=== PATIENT | male | born 1945 | race Caucasian/White ===

== ENCOUNTER 2023-12-31 22:07 | Inpatient (IN) | payer MEDICARE, OTHER, SELFPAY ==
[2023-12-31 17:13] VITALS: BP 126/84
[2023-12-31 17:37] LABS: % Basophils 0.2 % (0-2); % Eosinophils 0.1 % (0-6); % Immature Granulocytes 0.8 % (0-0.5); % Lymphocytes 3.8 % (20.5-51.1); % Monocytes 6.2 % (1.7-9.3); % Neutrophils 88.9 % (42.2-75.2); Absolute Immature Granulocytes 0.1 10^3/uL (0-0.05); Absolute Lymphocytes 0.6 10^3/uL (1.2-3.4); Absolute Neutrophils 14.7 10^3/uL (1.4-6.5); Hematocrit 44.4 % (39.0-52.0); Hemoglobin 15.6 g/dL (13.0-18.0); Mean Corp Hgb Conc. 35.1 g/dL (33.0-37.0); Mean Corpuscular Hgb 33.3 pg (27.0-31.0); Mean Corpuscular Volume 94.9 fL (80.0-94.0); Mean Platelet Volume 9.4 fL (7.4-10.4); Nucleated Red Blood Cells % 0 % (-); Platelet Count 266 10^3/uL (130-400); Red Blood Cell Count 4.68 10^6/uL (4.70-6.10); Red Cell Dist. Width 14.2 % (11.5-14.5); White Blood Cell Count 16.5 10^3/uL (4.8-10.8)
[2023-12-31 17:39] LABS: Urine Albumin Trace (Neg - Trace); Urine Bilirubin Negative (Negative); Urine Character Slightly Cloudy (Clear); Urine Color Yellow; Urine Glucose 2+ (Negative); Urine Ketone Negative (Negative); Urine Leukocyte 2+ (Negative); Urine Nitrite Positive (Negative); Urine Occult Blood 2+ (Negative); Urine Specific Gravity 1.015 (<1.030); Urine Urobilinogen Negative (Neg - 1+)
[2023-12-31 17:51] LABS: Urine Bacteria Many (Negative); Urine Red Blood Cell 0-2 /HPF (0-2); Urine White Cell 16-20 /HPF (0-5)
[2023-12-31 17:52] LABS: Lactic Acid 1.2 mmol/L (0.7-2.0)
[2023-12-31 17:53] LABS: ALT (SGPT) 23 U/L (0-50); AST (SGOT) 23 U/L (17-59); Albumin 4.1 g/dl (3.5-5.0); Alkaline Phosphatase 124 U/L (38-126); Blood Urea Nitrogen 33 mg/dl (9-20); Calcium 9.4 mg/dl (8.4-10.2); Carbon Dioxide 19 mmol/L (22-30); Chloride 105 mmol/L (98-107); Glucose 214 mg/dl (70-99); Sodium 137 mmol/L (135-145); Total Bilirubin 1.1 mg/dl (0.2-1.3); eGFR 56.23
[2023-12-31 18:22] LABS: COVID-19 Antigen Negative (Negative)
--- NOTE | 2023-12-31 18:38 | ED.GENMED ---
History of Present Illness
<FLORIAN Vee - Last Filed: 12/31/23 20:34>
General
Chief Complaint: Fever
Source: patient
Exam Limitations: none
Time Seen by Provider: 12/31/23 17:58
History of Present Illness
History of Present Illness:
This is a 78 year old male that comes in with c/o fever. States that he took a trip to [place] and when he came home he had COVID. States that he was treated with Paxlovid and after this he started with a UTI due to a kidney infection. States that he
was treated with Bactrim fo 10 days. States that he again has a fever and that he is also coughing. States that his temp at home was 102.8 and he has not taken any Tylenol. States that he has had fever with chills. Denies any chest pain, SOB, abd
pain, nausea, vomiting, diarrhea, headache, dizziness, urinary burning.
Past History
<FLORIAN Vee - Last Filed: 12/31/23 20:34>
Past History
ED Past Medical History: Cancer (Skin CA, Basal cell and Melanoma, Non-Hodgkin's Lymphoma), HTN, Hypercholesterolemia, NIDDM and Other (COVID)
ED Past Surgical History: None
Social History
Tobacco: Former smoker
Alcohol: None
Personal:
Living: with family
Review of Systems
<FLORIAN Vee - Last Filed: 12/31/23 20:34>
Review of Systems
Constitutional: Reports fever and chills
EENT: Reports no symptoms
Respiratory: Reports cough; Denies trouble breathing
Cardiac: Reports no symptoms; Denies chest pain
ABD/GI: Reports no symptoms; Denies abdominal pain, nausea, vomiting or diarrhea
: Reports dysuria and frequency; Denies urgency
Musculoskeletal: Reports no symptoms
Skin: Reports no symptoms
Neurological: Reports no symptoms; Denies dizzy or headache
Psychiatric: Reports no symptoms
Phy Exam
<FLORIAN Vee - Last Filed: 12/31/23 20:34>
General Physical Exam
General Presentation: no apparent distress
General age: appears stated age
General Skin: warm and dry
General Habitus: elderly
General Mental: alert
General Hydration: appears well hydrated
ENT Exam
ENT Exam: TM's normal, pharynx normal and neck supple
Eye Exam
Eye Exam: EOMI
Cardiovascular Exam
Cardiovascular Exam: regular rate/rhythm, no edema, no murmur and normal peripheral pulses
Pulmonary Exam
Pulmonary Exam: lungs clear, no respiratory distress, no rales, chest non tender, no crackles, no rhonchi, no wheezing and other (Dry cough noted)
Gastrointestinal Exam
Gastrointestinal Exam: normal bowel sounds, non tender, soft, no organomegaly, no pulsatile mass and non distended
Musculoskeletal Exam
Musculoskeletal Exam: full ROM and no edema
Skin Exam
Skin Exam: normal color, warm/dry, no rash and no petechia
Psychiatric Exam
Psychiatric Exam: normal mood/affect
Course
<FLORIAN Vee - Last Filed: 12/31/23 20:34>
Orders/Labs/Results
Orders:
Orders
12/31/23 17:28
COVID-19 Antigen Urgent
Source: Nasal Swab
Complete Blood Count/With Diff Urgent
Comprehensive Metabolic Panel Urgent
Lactate Level [Lactic Acid] Q4H
Influenza A+B Rapid Molecular Urgent
JUDI Source: Nasal Swab
Specimen Description:
12/31/23 17:31
Urinalysis Reflex To Culture Urgent
Date Specimen was Collected: 12/31/23
Time Specimen was Collected: 17:23
Urine Microscopic Reflex Cult Urgent
Urine Culture Urgent
JUDI Source: U
Specimen Description:
Date Specimen was Collected: 12/31/23
Time Specimen was Collected: 17:23
12/31/23 18:37
Rectal Temp- Treatment ONCE
0.9% Sodium Chloride 1000 ml [Nss] 1,000 ml IV BOLUS
12/31/23 18:38
Acetaminophen [Tylenol] 1,000 mg PO NOW STA
CR Chest - 2 Views Urgent
Comment:
Reason For Exam: Cough, fever,
12/31/23 18:46
CT Abd/pel Without Iv Or Oral Urgent
Comment:
Reason For Exam: UTI, Fever, history of kidney stones
12/31/23 18:56
Lactic Acid Urgent
Blood Culture Urgent
JUDI Source: Blood/Venous
Specimen Description:
12/31/23 19:58
CefTRIAXone [Rocephin] 1,000 mg IV NOW STA
12/31/23 21:20
Blood Culture Urgent
JUDI Source: Blood/Venous
Specimen Description:
12/31/23 21:32
Admit/Transfer Patient As Directed
Co-Sign Provider:
Level of Care: Inpatient admission
Assign to:: IMU- Intermediate Care
Physician / Group: Charles
Diagnosis: Cystitis / Prostatitis, Sepsis
Reason for Hospitalization: Cystitis / Prostatitis, Sepsis
Expected length of stay greater than two midnights?: Yes
ELOS- Estimated Length of Stay in days: 3
I certify the patient meets the requirements for IP care: Yes
PRN Pain Medication Management As Directed
May give lesser potent ordered pain med per pt: Yes
preference::
Protocol:: Medication orders for pain may be administered in a
manner that supports deferring to patient preference
when the pt is:
- Requesting an ordered lesser potent pain medication.
Least to most potent pain medications are defined
as: acetaminophen < NSAID < tramadol < opioids
(morphine, oxycodone, hydromorphone).
- Requesting a lesser dose of the same medication IF
ORDERED.
- Requesting a less intrusive route of administration
if both routes are prescribed by the provider (PO <
IV).
12/31/23 21:35
Code Status As Directed
Resuscitation Status: Full Code
12/31/23 22:00
Flush (0.9% Sodium Chloride) [Flush (Nss)] See Dose Instructions IV PER PROTOCOL
12/31/23 23:33
0.9% Sodium Chloride 1000 ml [Nss] 1,000 ml IV 100 mls/hr
Acetaminophen [Tylenol] 650 mg PO Q4HPRN PRN
Dextrose 50%-Water [Dextrose 50% Syringe] 12.5 grams IV Q72BQGE PRN
Glucagon [GlucaGen] 1 mg IM PRN PRN
Montelukast Sodium [Singulair] 10 mg PO HS
Rosuvastatin Calcium [Crestor] 20 mg PO HS
12/31/23 23:33
Activity As Directed
Activity Level: Ambulate
With Assistance
Bedside Glucose Monitoring As Directed
Frequency: AC&HS
Additional Instructions:: Change to q6h if pt on TPN, tube feeding or not eating
Bladder Scan As Directed
Follow Bladder Retention/Intermittent Cath Algorithm?: Yes
PRN if no void in __ hours: 6
Frequency: Per Retention Algorithm
If Bladder Scan Result >: 400
then:: Straight cath
I/O [Intake/ Output] As Directed
Frequency: Per unit guidelines
Orthostatic Vital Signs As Directed
Orthostatic VS Frequency: BID
Straight Cath As Directed
Frequency: Per Retention Algorithm
Additional Instructions: straight cath as needed per acute urinary retention algorithm for 24 hrs
Additional Instructions: for bladder scan greater than 400 mL
Vital Signs As Directed
Frequency: Per unit guidelines
Oxygen Therapy [O2 Therapy] [RESP] Routine
Titrate/Wean O2 to maintain O2 sat greater than (%): 94
DX Deep Vein Thrombosis Video Routine
01/01/24 Breakfast
2000 calorie (17 carb) Diabetic
At Your Request: Full Participation
Basic Metabolic Panel IN AM
Complete Blood Count/No Diff IN AM
Glycohemoglobin (HgbA1c) IN AM
01/01/24 07:30
Insulin Aspart Corrective Low [Novolog Flexpen-Low Resistance] See Protocol SC AC
01/01/24 08:00
Allopurinol [Zyloprim] 100 mg PO BID
Aspirin Chewable [Low Strength Aspirin] 81 mg PO DAILY
Carvedilol [Coreg] 25 mg PO BID
Pantoprazole [Protonix] 40 mg PO DAILY
Sacubitril 49/Valsartan 51 [Entresto 49 mg/51 mg] 1 tab PO BID
Tamsulosin [Flomax] 0.4 mg PO DAILY
01/01/24 18:00
Enoxaparin Sodium [Lovenox] 40 mg SC QPM
Abnormal Lab Results
12/31/23 12/31/23
17:28 17:31
WBC 16.5 H 10^3/uL
(4.8-10.8)
RBC 4.68 L 10^6/uL
(4.70-6.10)
MCV 94.9 H fL
(80.0-94.0)
MCH 33.3 H pg
(27.0-31.0)
Abs Immat Gran (auto) 0.1 H 10^3/uL
(0-0.05)
Absolute Neuts (auto) 14.7 H 10^3/uL
(1.4-6.5)
Absolute Lymphs (auto) 0.6 L 10^3/uL
(1.2-3.4)
Absolute Monos (auto) 1.0 H 10^3/uL
(0.1-0.6)
Immature Gran % 0.8 H %
(0-0.5)
Neutrophils % 88.9 H %
(42.2-75.2)
Lymphocytes % 3.8 L %
(20.5-51.1)
Carbon Dioxide 19 L mmol/L
(22-30)
BUN 33 H mg/dl
(9-20)
Glucose 214 H mg/dl
(70-99)
Ur Occult Blood Reflex 2+ A
(Negative)
Urine Nitrite (Reflex) Positive A
(Negative)
Leukocyte Esterase Rfl 2+ A
(Negative)
Urine WBC (Reflex) 16-20 A /HPF
(0-5)
Urine Bacteria (Reflex) Many A
(Negative)
Urine Glucose 2+ A
(Negative)
12/31/23 17:28
12/31/23 17:28
Leukocytosis, carbon dioxide low. Dehydration. Hyperglycemia, Urine positive for infection. Lactic acid normal at 1.2
Vital Signs
Initial and Last Documented VS:
Initial Vital Signs
Temp Pulse Resp BP Pulse Ox
99.9 F 124 20 126/84 91
12/31/23 17:13 12/31/23 17:13 12/31/23 17:13 12/31/23 17:13 12/31/23 17:13
Last Documented Vital Signs
Temp Pulse Resp BP Pulse Ox
98.3 F 88 22 121/76 94
01/01/24 00:37 01/01/24 01:45 01/01/24 01:45 01/01/24 01:00 01/01/24 01:45
<Belkis Bell MD - Last Filed: 01/01/24 02:31>
Orders/Labs/Results
Orders:
Orders
12/31/23 17:28
COVID-19 Antigen Urgent
Source: Nasal Swab
Complete Blood Count/With Diff Urgent
Comprehensive Metabolic Panel Urgent
Lactate Level [Lactic Acid] Q4H
Influenza A+B Rapid Molecular Urgent
JUDI Source: Nasal Swab
Specimen Description:
12/31/23 17:31
Urinalysis Reflex To Culture Urgent
Date Specimen was Collected: 12/31/23
Time Specimen was Collected: 17:23
Urine Microscopic Reflex Cult Urgent
Urine Culture Urgent
JUDI Source: U
Specimen Description:
Date Specimen was Collected: 12/31/23
Time Specimen was Collected: 17:23
12/31/23 18:37
Rectal Temp- Treatment ONCE
0.9% Sodium Chloride 1000 ml [Nss] 1,000 ml IV BOLUS
12/31/23 18:38
Acetaminophen [Tylenol] 1,000 mg PO NOW STA
CR Chest - 2 Views Urgent
Comment:
Reason For Exam: Cough, fever,
12/31/23 18:46
CT Abd/pel Without Iv Or Oral Urgent
Comment:
Reason For Exam: UTI, Fever, history of kidney stones
12/31/23 18:56
Lactic Acid Urgent
Blood Culture Urgent
JUDI Source: Blood/Venous
Specimen Description:
12/31/23 19:58
CefTRIAXone [Rocephin] 1,000 mg IV NOW STA
12/31/23 21:20
Blood Culture Urgent
JUDI Source: Blood/Venous
Specimen Description:
12/31/23 21:32
Admit/Transfer Patient As Directed
Co-Sign Provider:
Level of Care: Inpatient admission
Assign to:: IMU- Intermediate Care
Physician / Group: Charles
Diagnosis: Cystitis / Prostatitis, Sepsis
Reason for Hospitalization: Cystitis / Prostatitis, Sepsis
Expected length of stay greater than two midnights?: Yes
ELOS- Estimated Length of Stay in days: 3
I certify the patient meets the requirements for IP care: Yes
PRN Pain Medication Management As Directed
May give lesser potent ordered pain med per pt: Yes
preference::
Protocol:: Medication orders for pain may be administered in a
manner that supports deferring to patient preference
when the pt is:
- Requesting an ordered lesser potent pain medication.
Least to most potent pain medications are defined
as: acetaminophen < NSAID < tramadol < opioids
(morphine, oxycodone, hydromorphone).
- Requesting a lesser dose of the same medication IF
ORDERED.
- Requesting a less intrusive route of administration
if both routes are prescribed by the provider (PO <
IV).
12/31/23 21:35
Code Status As Directed
Resuscitation Status: Full Code
12/31/23 22:00
Flush (0.9% Sodium Chloride) [Flush (Nss)] See Dose Instructions IV PER PROTOCOL
12/31/23 23:33
0.9% Sodium Chloride 1000 ml [Nss] 1,000 ml IV 100 mls/hr
Acetaminophen [Tylenol] 650 mg PO Q4HPRN PRN
Dextrose 50%-Water [Dextrose 50% Syringe] 12.5 grams IV [id number] PRN
Glucagon [GlucaGen] 1 mg IM PRN PRN
Montelukast Sodium [Singulair] 10 mg PO HS
Rosuvastatin Calcium [Crestor] 20 mg PO HS
12/31/23 23:33
Activity As Directed
Activity Level: Ambulate
With Assistance
Bedside Glucose Monitoring As Directed
Frequency: AC&HS
Additional Instructions:: Change to q6h if pt on TPN, tube feeding or not eating
Bladder Scan As Directed
Follow Bladder Retention/Intermittent Cath Algorithm?: Yes
PRN if no void in __ hours: 6
Frequency: Per Retention Algorithm
If Bladder Scan Result >: 400
then:: Straight cath
I/O [Intake/ Output] As Directed
Frequency: Per unit guidelines
Orthostatic Vital Signs As Directed
Orthostatic VS Frequency: BID
Straight Cath As Directed
Frequency: Per Retention Algorithm
Additional Instructions: straight cath as needed per acute urinary retention algorithm for 24 hrs
Additional Instructions: for bladder scan greater than 400 mL
Vital Signs As Directed
Frequency: Per unit guidelines
Oxygen Therapy [O2 Therapy] [RESP] Routine
Titrate/Wean O2 to maintain O2 sat greater than (%): 94
DX Deep Vein Thrombosis Video Routine
01/01/24 Breakfast
2000 calorie (17 carb) Diabetic
At Your Request: Full Participation
Basic Metabolic Panel IN AM
Complete Blood Count/No Diff IN AM
Glycohemoglobin (HgbA1c) IN AM
01/01/24 07:30
Insulin Aspart Corrective Low [Novolog Flexpen-Low Resistance] See Protocol SC AC
01/01/24 08:00
Allopurinol [Zyloprim] 100 mg PO BID
Aspirin Chewable [Low Strength Aspirin] 81 mg PO DAILY
Carvedilol [Coreg] 25 mg PO BID
Pantoprazole [Protonix] 40 mg PO DAILY
Sacubitril 49/Valsartan 51 [Entresto 49 mg/51 mg] 1 tab PO BID
Tamsulosin [Flomax] 0.4 mg PO DAILY
01/01/24 18:00
Enoxaparin Sodium [Lovenox] 40 mg SC QPM
Abnormal Lab Results
12/31/23 12/31/23
17:28 17:31
WBC 16.5 H 10^3/uL
(4.8-10.8)
RBC 4.68 L 10^6/uL
(4.70-6.10)
MCV 94.9 H fL
(80.0-94.0)
MCH 33.3 H pg
(27.0-31.0)
Abs Immat Gran (auto) 0.1 H 10^3/uL
(0-0.05)
Absolute Neuts (auto) 14.7 H 10^3/uL
(1.4-6.5)
Absolute Lymphs (auto) 0.6 L 10^3/uL
(1.2-3.4)
Absolute Monos (auto) 1.0 H 10^3/uL
(0.1-0.6)
Immature Gran % 0.8 H %
(0-0.5)
Neutrophils % 88.9 H %
(42.2-75.2)
Lymphocytes % 3.8 L %
(20.5-51.1)
Carbon Dioxide 19 L mmol/L
(22-30)
BUN 33 H mg/dl
(9-20)
Glucose 214 H mg/dl
(70-99)
Ur Occult Blood Reflex 2+ A
(Negative)
Urine Nitrite (Reflex) Positive A
(Negative)
Leukocyte Esterase Rfl 2+ A
(Negative)
Urine WBC (Reflex) 16-20 A /HPF
(0-5)
Urine Bacteria (Reflex) Many A
(Negative)
Urine Glucose 2+ A
(Negative)
12/31/23 17:28
12/31/23 17:28
Vital Signs
Initial and Last Documented VS:
Initial Vital Signs
Temp Pulse Resp BP Pulse Ox
99.9 F 124 20 126/84 91
12/31/23 17:13 12/31/23 17:13 12/31/23 17:13 12/31/23 17:13 12/31/23 17:13
Last Documented Vital Signs
Temp Pulse Resp BP Pulse Ox
98.3 F 88 22 121/76 94
01/01/24 00:37 01/01/24 01:45 01/01/24 01:45 01/01/24 01:00 01/01/24 01:45
<FLORIAN Vee - Last Filed: 12/31/23 20:34>
MDM/Problems Addressed
Differential Diagnosis Includes:
UTI, PNA,
MDM/Problems Addressed:
This is a 78 year old male that comes in with c/o fever. States that he had COVID and took Paxlovid. States that he finished that and then had a kidney infection and was given Bactrim. States that his fever is back and he was 102.8 at home. States
that he has urinary frequency with burning. States that he also has a cough
will check labs, chest X-ray, Urine, Give IV fluids and Tylenol. Will also get CT to r/o any obstructing stones.
Back into see patient. Explained that the CT was negative for any renal calculus, but the bladder has wall thickening and this looks to be Cystitis. There is also a very large Prostate and that there appears to be infection traveling up the left
ureter. Patient was started on antibiotics and will be admitted. Hospitalist notified.
Chronic conditions affecting care: Other (History of UTI )
Acute Exacerbation and/or Progression of Chronic Illness:
UTI
<FLORIAN Vee - Last Filed: 12/31/23 20:34>
*Radiology
Radiology exam reviewed: preliminary read by ED provider (Chest- negative for active disease. ), radiology read reviewed (CT-Moderate diffuse thickening of the urinary bladder wall. severely enlarged prostate gland. Mild perivesical and
periprostatic inflammation suggesting Acute cystitis and possibly acute prostatitis. superimposed upon chronic urinary bladder outlet obstruction. Mild distention of the distal left), all reviewed NAD by ED Provider (CT cont- ureter with mild
periureteral inflammation suggesting ascending urinary tract infection. No CT evidence for hydronephrosis in either kidney. Moderate chronic bilateral renal disease. Severe diverticulosis in the sigmoid colon. Severe calcific atherosclerotic plaque
in the abdominal aorta.) and other (CT cont- mild splenomegaly. Severe discogenic degenerative disease at L2/L3. Moderate sclerosis in the L2 vertebral body wit mild loss of vertebral body height which could be secondary to previous fracture,
discogenic degenerative disease, or osseous lymphoma. )
*Pulse Oximetry
Patient hypoxic: no
Comment: 92% on room air
*EKG
Interpreted by ED Provider?: NA
Rate: EKG- N/A
*Sole Filler Interpretation
Rate: Sole Filler- N/A
*Critical Care Note
Total Time (30-74mins, 75-104mins- exclusive of procedures): Not Applicable
ED Attending Note
<FLORIAN Vee - Last Filed: 12/31/23 20:34>
-
Portions of this chart may have been created with voice recognition software.� Occasional wrong word or��sound alike� substitutions may have occurred due to the inherent limitations of voice recognition software.
<Belkis Bell MD - Last Filed: 01/01/24 02:31>
ED Attending Note
Patient seen and examined by attending physician: Yes
I performed the substantive portion of visit, reviewed & personally made and approve the management plan that is documented in note by myself or RENZO.: Yes
ED Attending Note:
78-year-old male who noted fever, urinary frequency and urgency, and a 'pressure' flank area� Submitted a urine sample to his doctor and was told that he may have a kidney stone and started on Bactrim which she completed after 10 days. This was
approximately 4 to 5 days ago that he finished his antibiotics which she took consistently. He is unclear of the urine culture results. He was feeling well until yesterday into last night when he developed sweats, fatigue, and fever. Son noted
that he looked pale and weak today which prompted the visit here. Patient denies flank pain, abdominal pain, nausea, vomiting. Noted to have a fever here. Does note continued urinary frequency. Patient has a CAT scan report that I reviewed from
December 23 that he had an outside facility that does not show abnormalities of the system, no stone noted, no hydro. Urine here consistent with infection associated with elevated white blood cell count with mild left shift. Will start patient
on IV antibiotics, IV fluids, admission. CT pending
Discharge Plan
Departure
Patient Disposition: Admit
Date of Disposition: 12/31/23
Time of Disposition: 20:33
Admit to: Med/Surg
Presentation/result/management discussed w/ accepting MD/DO: Hospitalist
Patient with high blood pressure during this ER visit?: Yes
Condition: Good
Covid-19: Negative COVID-19
Discharge Problem:
Urinary tract infection, Cystitis, Acute prostatitis
Interventions
Interventions:
*Risk Screen - Suicide Last Done: 12/31/23 17:13
*General Assessment Last Done: 12/31/23 19:26
*Neglect/Abuse Screening Last Done: 12/31/23 19:26
ED- Fall Risk Assessment Last Done: 12/31/23 19:27
*ED COVID-19 Vaccine History Last Done: 12/31/23 19:26
*Nursing Disposition Last Done: 12/31/23 23:44
ED- Neurological Assessment Last Done: 12/31/23 19:27
ED-Skin Assessment Last Done: 12/31/23 19:29
Discharge Date and Time
Discharge Date/Time: 12/31/23 23:45
[2023-12-31 18:52] VITALS: BMI 27.7
[2023-12-31] MEDS: TYLENOL 1000 MG PO (18:53)
[2023-12-31 19:10] VITALS: BP 134/81
[2023-12-31] MEDS: NSS 1000 IV ×2 (19:13→23:44)
[2023-12-31 19:31] LABS: Lactic Acid 1.2 mmol/L (0.7-2.0)
[2023-12-31 20:11] VITALS: BP 123/78
[2023-12-31] MEDS: ROCEPHIN 1000 MG IV (20:50)
--- NOTE | 2023-12-31 21:40 | HPS.HSE ---
Family Physician
-
Family Physician: Ander Carrington
Chief Complaint
-
Fever, Malaise, Urinary Frequency / Urgency / Incontinence
History of Present Illness
Patient is a 78y M with PMH significant for hypertension and lymphoma who presents to ED complaining of flank pain, fever / chills and urinary symptoms for about 3 weeks. Patient states that he was initially evaluated at [facility] and had CT scan
about 2 weeks ago. They felt he may have passed a kidney stone. He was treated with some abx (? Bactrim) for 10 days and felt that his symptoms were improved while on this medication. He completed his course on Friday and his symptoms have since
returned. Patient states he has never had a kidney stone before. With recurrent / persistent symptoms despite abx treatment, patient presented to the ED for further evaluation.
Patient reports recent travel to [place]. Returned home about 4 weeks ago.
Diagnosed with COVID after return to [place]. Has some lingering cough still.
Urinary symptoms started about one week later.
Medical History
Past Medical History
Past Medical History: Reports Other
Additional Past Medical History:
Hypertension
Lymphoma (2021)
CHF - Unknown Type
DM-II
Melanoma
Asthma / Allergies
Past Surgical History: Reports Other
Additional Past Surgical History:
Mohs Surgeries
Melanoma Excisions x 2
Social History
Tobacco: Former Smoker (Quit smoking > 50 years ago.)
Alcohol: None
Drug: None
Family History
Family History: Hypertension
Allergies / Home Medications
Allergies reflects when Allergies were last updated in [facility].
Home Medications with original date entered in [facility]
Allergy/Medication List:
Allergies
Allergy/AdvReac Type Severity Reaction Status Date / Time
No Known Allergies Allergy Unverified 12/31/23 17:20
Home Medications
allopurinol 100 mg tablet 100 mg PO BID 12/31/23
amlodipine 2.5 mg tablet 2.5 mg PO DAILY 12/31/23
aspirin 81 mg chewable tablet 81 mg PO DAILY 12/31/23
azelastine 137 mcg (0.1 %) nasal spray 1 spray intranasal BIDPRN PRN conjestion 12/31/23
carvedilol 25 mg tablet 25 mg PO BID 12/31/23
cholecalciferol (vit D3) 1,000 unit-vitamin K2 (MK4) 100 mcg tablet 1 tab PO DAILY 12/31/23
fluticasone propionate 50 mcg/actuation nasal spray,suspension 1 spray intranasal BIDPRN PRN conjestion 12/31/23
lansoprazole 30 mg capsule,delayed release 30 mg PO DAILY 12/31/23
metformin 500 mg tablet 500 mg PO BID 12/31/23
montelukast 10 mg tablet 10 mg PO HS 12/31/23
rosuvastatin 20 mg tablet 20 mg PO HS 12/31/23
sacubitril 49 mg-valsartan 51 mg tablet (Entresto) 1 tab PO BID 12/31/23
sitagliptin phosphate 100 mg tablet (Januvia) 100 mg PO DAILY 12/31/23
zinc sulfate 50 mg zinc (220 mg) tablet 50 mg PO DAILY 12/31/23
Review of Systems
-
History Source: Patient
A 12 point ROS was completed and negative except as noted: Yes
Constitutional: Reports Fever, Fatigue and Chills
EENT: Denies Sore Throat
Respiratory: Reports Cough; Denies Hemoptysis
Cardiac: Denies Chest Pain or Palpitations
Abdomen/GI: Denies Abdominal Pain, Nausea, Vomiting or Diarrhea
: Reports Dysuria, Frequency, Flank Pain, Incontinence and Urgency
Musculoskeletal: Reports Muscle Pain; Denies Joint Pain or Edema
Neurological: Denies Dizzy or Headache
Psych: Denies Depression or Anxiety
Physical Exam
Vital Signs
Vital Signs
Temp Pulse Resp BP Pulse Ox
102.2 F H 115 13 134/81 93
12/31/23 18:52 12/31/23 19:15 12/31/23 19:15 12/31/23 19:10 12/31/23 19:15
Physical Exam
General: Other (78y M in no acute distress.)
HEENT: PERRLA and Other (Dry MM.)
Respiratory: Clear; No Wheezes, Rales or Rhonchi
Cardiac: S1/S2 and Regular Rhythm; No Murmur
GI: Soft, Non Tender, Non Distended and Normal Bowel Sounds
Genito-urinary: No costovertebral tender
Musculoskeletal: No Clubbing, No Cyanosis and No Edema
Neuro: AO x 3
Laboratory Results
-
12/31/23 17:28
12/31/23 17:28
Laboratory Results
Lactic Acid Cancelled 12/31/23 21:30
Total Bilirubin 1.1 mg/dl (0.2-1.3) 12/31/23 17:28
AST 23 U/L (17-59) 12/31/23 17:28
ALT 23 U/L (0-50) 12/31/23 17:28
Alkaline Phosphatase 124 U/L (38-126) 12/31/23 17:28
Impression/Plan
-
A/P: Patient is a 78y M with PMH significant for hypertension, CHF and lymphoma who presents to ED complaining of 3 weeks of urinary symptoms, fevers and malaise.
Cystitis / Prostatitis
Sepsis secondary to the above
- Admit for further evaluation and treatment.
- Patient presents with fever, leukocytosis and UA / CT findings consistent with urinary source of infection.
- Some transient improvement while on Bactrim - but symptoms recurred after 10 day course completed.
- IV abx with levofloxacin for now.
- Follow-up culture data and adjust treatment as indicated.
- Supportive care including IVFs, antipyretics, etc.
- Follow for clinical improvement.
- Tamsulosin for now.
- Bladder scan protocol / straight cath if needed for any evidence of urinary retention.
Benign Hypertension
- Stable. Continue carvedilol with holding parameters.
- Hold amlodipine acutely.
CHF - Unknown Type
- Patient is on GDMT suggestive of CHF. No prior records here.
- Follow for any evidence of volume overload.
- Continue Entresto.
DM-II
- Hold metformin / Januvia acutely.
- Follow glucose and cover with SSI if needed.
- Update A1C.
Allergies / Asthma without Acute Exacerbation
- Continue Singulair.
DVT Prophylaxis: Lovenox
Code Status: Full
[2023-12-31 23:15] VITALS: BP 115/71
[2023-12-31 23:37] VITALS: BP 138/86
[2023-12-31] MEDS: CRESTOR 20 MG PO (23:56)
[2023-12-31] MEDS: SINGULAIR 10 MG PO (23:56)
[2023-12-31 23:58] VITALS: BMI 27.0
[2024-01-01] VITALS (28 sets, daily range): BP systolic 95–146; BP diastolic 60–94; PULSE 90–101; BMI 27.0
--- NOTE | 2024-01-01 00:41 | PTCARENOTE ---
Pt arrived to unit via stretcher, ambulated to bed with standby assist, denies pain and SOB, AAOx3, SR with PVCs, afebrile, RA 95%, diabetic diet, voids in bathroom, skin intact, call wayne in reach. IVF NSS running per orders.
[2024-01-01] MEDS: LEVAQUIN 100 IV (01:42)
--- NOTE | 2024-01-01 04:00 | PTCARENOTE ---
no changes from prior assessment, pt denies pain, ambulated to bathroom with assistance, call wayne in reach
[2024-01-01 04:22] LABS: Hematocrit 40.8 % (39.0-52.0); Hemoglobin 14.1 g/dL (13.0-18.0); Mean Corp Hgb Conc. 34.6 g/dL (33.0-37.0); Mean Corpuscular Hgb 33.3 pg (27.0-31.0); Mean Corpuscular Volume 96.2 fL (80.0-94.0); Mean Platelet Volume 9.4 fL (7.4-10.4); Platelet Count 253 10^3/uL (130-400); Red Blood Cell Count 4.24 10^6/uL (4.70-6.10); Red Cell Dist. Width 14.1 % (11.5-14.5); White Blood Cell Count 16.4 10^3/uL (4.8-10.8)
[2024-01-01 04:50] LABS: Blood Urea Nitrogen 27 mg/dl (9-20); Calcium 8.8 mg/dl (8.4-10.2); Carbon Dioxide 18 mmol/L (22-30); Chloride 108 mmol/L (98-107); Estimated Creatinine Clearance 55 ml/min; Glucose 97 mg/dl (70-99); Potassium 4.9 mmol/L (3.5-5.1); Sodium 141 mmol/L (135-145); eGFR > 60.00
[2024-01-01 06:25] LABS: Glucose - Point of Care 85 mg/dl (70-99)
--- NOTE | 2024-01-01 08:00 | PTCARENOTE ---
Assumed care of patient at 0645. Assessment completed and documented in worklist appropriately.
Patient is pleasant, AAOX3. Presently clammy, reporting chills. Temperature 102.1 this AM. Tylenol given and provider notified.
Patient also with persistent dry, strong hacking cough. MD to order PRN.
[2024-01-01] MEDS: ENTRESTO 49 MG/51 MG 1 TAB PO ×2 (08:21→21:05)
[2024-01-01] MEDS: TYLENOL 650 MG PO (08:21)
[2024-01-01] MEDS: FLOMAX 0.4 MG PO (08:21)
[2024-01-01] MEDS: ZYLOPRIM 100 MG PO ×2 (08:22→21:05)
[2024-01-01] MEDS: PROTONIX 40 MG PO (08:22)
[2024-01-01] MEDS: COREG 25 MG PO ×2 (08:22→21:05)
[2024-01-01] MEDS: LOW STRENGTH ASPIRIN 81 MG PO (08:22)
[2024-01-01 08:50] LABS: Glucose - Point of Care 109 mg/dl (70-99)
[2024-01-01 09:08] LABS: Glycohemoglobin (HgbA1c) 7.2 % (4.0-5.6)
[2024-01-01] MEDS: NSS 1000 IV ×2 (09:44→19:08)
[2024-01-01] MEDS: LEVAQUIN 150 IV (09:44)
[2024-01-01] MEDS: ROBITUSSIN DM 10 ML PO ×4 (09:44→22:59)
[2024-01-01 12:03] LABS: Glucose - Point of Care 119 mg/dl (70-99)
--- NOTE | 2024-01-01 12:16 | CM ---
CM reviewed medical records. CM met with patient in room. Patient confirmed demographics. Patient denies history of VN or SNF. Patient does not have DME in the home. Patient lives with his . Patient that he is active with his PCP. Patient uses
[facility].
PLAN: Home with , no needs noted.
--- NOTE | 2024-01-01 15:47 | W.PN.HOSP.TC ---
Today's Communication/Plan
-
IV antibiotics
IV fluids.
Follow blood cultures/urine culture
Assessment / Plan
Assessment / Plan
Impression:
Clinical sepsis
UTI/prostatitis
OCTAVIO, mild
Metabolic acidosis
Other conditions:
Essential hypertension
Type 2 diabetes.
Recent COVID with persistent cough.
Doubt
Plan:
CT abdomen/pel
1. Moderate diffuse thickening of the urinary bladder wall. Severely enlarged prostate gland. Mild perivesical and periprostatic inflammation suggesting ACUTE CYSTITIS and possibly acute prostatitis superimposed upon chronic urinary bladder outlet
obstruction.
2. Mild distention of the distal left ureter with mild periureteral inflammation suggesting ascending urinary tract infection.
3. No CT evidence for hydronephrosis in either kidney.
4. Moderate chronic bilateral renal disease.
Sepsis/prostatitis.
Remains febrile with chills
Hemodynamically stable.
Continue antibiotics levofloxacin. Dose adjusted to 750 mg every 24 hours
Follow blood and urine cultures.
Continue Flomax.
Monitor for retention
OCTAVIO.
Metabolic acidosis.
Normal lactate level.
Continue IV fluids.
Creatinine improving 1.3�1.1.
Follow BMP
Essential hypertension.
Patient reports no history of CHF.
Negative history of CAD.
Negative history of arrhythmia.
Continue preadmission regimen including Coreg, Entresto, statin, aspirin
Type 2 diabetes
Hold oral hypoglycemics
Continue insulin basal bolus.
Continue carbohydrate controlled diet
Anticipated Discharge: 24 - 48 hours
Subjective/Interval History
-
Date of Service: January 01, 2024
Objective Data
-
Labs:
Laboratory Results
01/01/24
04:11
WBC 16.4 H
Hgb 14.1
Hct 40.8
Plt Count 253
Sodium 141
Potassium 4.9
Chloride 108 H
Carbon Dioxide 18 L
BUN 27 H
Creatinine 1.1
Glucose 97
Calcium 8.8
Vital Signs:
Vital Signs
Temp Pulse Resp BP Pulse Ox
98.4 F 84 19 115/68 92
01/01/24 15:31 01/01/24 13:15 01/01/24 13:15 01/01/24 13:00 01/01/24 13:15
I&O
12/31/23 01/01/24 01/02/24
06:59 06:59 06:59
Intake Total 630 / 730 1250 / 1250
Output Total 175 / 175 300 / 300
Balance 455 / 555 950 / 950
Physical Exam
-
General: Well Developed and No Apparent Distress
HEENT: Normocephalic, Atraumatic and Moist Mucous Membranes
Respiratory: Clear to Auscultation
Cardiac: Regular Rhythm and S1/S2; Negative Murmur, Rub or Gallop
GI: Soft, Nontender, Nondistended and Normal Bowel Sounds; Negative Organomegaly
Rectal: Deferred by Provider
Musculoskeletal: No Clubbing, No Cyanosis and No Edema
Skin: Negative Rash
Neuro: Nonfocal/Grossly Intact
[2024-01-01 16:51] LABS: Glucose - Point of Care 128 mg/dl (70-99)
[2024-01-01] MEDS: LOVENOX 40 MG SC (18:13)
--- NOTE | 2024-01-01 20:00 | PTCARENOTE ---
On assessment pt ambulated to bathroom to void without issue, denies pain and SOB, AAOx3, afebrile, SR on the monitor, 95% RA, 1999 diabetic diet, skin intact, NSS at 100ml/hr infusing per orders, call wayne in reach.
[2024-01-01] MEDS: SINGULAIR 10 MG PO (21:05)
[2024-01-01] MEDS: CRESTOR 20 MG PO (21:05)
[2024-01-01 21:15] LABS: Glucose - Point of Care 128 mg/dl (70-99)
[2024-01-02] VITALS (15 sets, daily range): BP systolic 104–151; BP diastolic 64–88; BMI 27.6
[2024-01-02 05:18] LABS: % Basophils 0.5 % (0-2); % Eosinophils 1.5 % (0-6); % Immature Granulocytes 0.6 % (0-0.5); % Lymphocytes 11.1 % (20.5-51.1); % Monocytes 6.9 % (1.7-9.3); % Neutrophils 79.4 % (42.2-75.2); Absolute Eosinophils 0.1 10^3/uL (0-0.7); Absolute Immature Granulocytes 0.1 10^3/uL (0-0.05); Absolute Lymphocytes 0.9 10^3/uL (1.2-3.4); Absolute Monocytes 0.6 10^3/uL (0.1-0.6); Absolute Neutrophils 6.3 10^3/uL (1.4-6.5); Hematocrit 40.5 % (39.0-52.0); Hemoglobin 14.1 g/dL (13.0-18.0); Mean Corp Hgb Conc. 34.8 g/dL (33.0-37.0); Mean Corpuscular Hgb 34.5 pg (27.0-31.0); Mean Platelet Volume 9.6 fL (7.4-10.4); Nucleated Red Blood Cells % 0 % (-); Platelet Count 215 10^3/uL (130-400); Red Blood Cell Count 4.09 10^6/uL (4.70-6.10); Red Cell Dist. Width 14.1 % (11.5-14.5); White Blood Cell Count 7.9 10^3/uL (4.8-10.8)
[2024-01-02 05:29] LABS: Blood Urea Nitrogen 19 mg/dl (9-20); Calcium 8.4 mg/dl (8.4-10.2); Carbon Dioxide 17 mmol/L (22-30); Chloride 108 mmol/L (98-107); Estimated Creatinine Clearance 55 ml/min; Glucose 120 mg/dl (70-99); Potassium 4.4 mmol/L (3.5-5.1); Sodium 139 mmol/L (135-145); eGFR > 60.00
[2024-01-02] MEDS: TYLENOL 650 MG PO (08:00)
[2024-01-02] MEDS: FLOMAX 0.4 MG PO (08:00)
[2024-01-02] MEDS: ENTRESTO 49 MG/51 MG 1 TAB PO ×2 (08:01→20:33)
[2024-01-02] MEDS: COREG 25 MG PO ×2 (08:01→20:33)
[2024-01-02] MEDS: LOW STRENGTH ASPIRIN 81 MG PO (08:01)
[2024-01-02] MEDS: PROTONIX 40 MG PO (08:01)
[2024-01-02 08:02] LABS: Glucose - Point of Care 116 mg/dl (70-99)
[2024-01-02] MEDS: ROBITUSSIN DM 10 ML PO ×3 (08:02→20:36)
[2024-01-02] MEDS: ZYLOPRIM 100 MG PO ×2 (08:02→20:34)
[2024-01-02] MEDS: ANCEF 10 IV ×3 (09:21→23:39)
[2024-01-02] MEDS: NSS 1000 IV ×2 (12:13→23:39)
[2024-01-02 12:37] LABS: Glucose - Point of Care 143 mg/dl (70-99)
--- NOTE | 2024-01-02 12:43 | PTCARENOTE ---
Pt received in bed @ 0700. Motivated for discharge. Oral temp 100.2F. Pt with headache. PRN Tylenol provided. Pt then took a nap and awoke diaphoretic. Bed bath performed and linens changed. Temp 98.4F. New ordered Ancef administered. Pt with
downgrade orders to med/surg. Report given to receiving nurse and pt taken to telemetry floor.
[2024-01-02 13:54] LABS: PSA, Total - Screen 6.21 ng/ml (0.0-4.0)
--- NOTE | 2024-01-02 16:59 | W.PN.HOSP.TC ---
Today's Communication/Plan
-
Urine culture with quinolone resistant E. coli
Transition to cefazolin
Monitor temperature curve
Continue IV hydration
Assessment / Plan
Assessment / Plan
Impression:
Clinical sepsis
UTI/prostatitis
OCTAVIO, mild
Metabolic acidosis
Other conditions:
Essential hypertension
Type 2 diabetes.
Recent COVID with persistent cough.
Doubt
Plan:
CT abdomen/pel
1. Moderate diffuse thickening of the urinary bladder wall. Severely enlarged prostate gland. Mild perivesical and periprostatic inflammation suggesting ACUTE CYSTITIS and possibly acute prostatitis superimposed upon chronic urinary bladder outlet
obstruction.
2. Mild distention of the distal left ureter with mild periureteral inflammation suggesting ascending urinary tract infection.
3. No CT evidence for hydronephrosis in either kidney.
4. Moderate chronic bilateral renal disease.
Sepsis/prostatitis�cystitis.
PSA 6.21
Urine culture with E. coli resistant to quinolones
Remains febrile with chills
Hemodynamically stable.
Given E. coli sensitivities transition of Levaquin to cefazolin.
Continue Flomax.
Monitor for retention
Would consider to transition to oral antibiotics when afebrile for 24 hours. Will need prolonged therapy for prostatitis as outpatient for total of 14 to 21 days
OCTAVIO.
Metabolic acidosis.
Normal lactate level.
Continue IV fluids.
Creatinine improving 1.3�1.1.
Follow BMP
Essential hypertension.
Patient reports no history of CHF.
Negative history of CAD.
Negative history of arrhythmia.
Continue preadmission regimen including Coreg, Entresto, statin, aspirin
Type 2 diabetes
Hold oral hypoglycemics
Continue insulin basal bolus.
Continue carbohydrate controlled diet
Anticipated Discharge: 24 - 48 hours
Subjective/Interval History
-
Date of Service: January 02, 2024
Objective Data
-
Labs:
Laboratory Results
01/02/24
04:56
WBC 7.9
Hgb 14.1
Hct 40.5
Plt Count 215
Sodium 139
Potassium 4.4
Chloride 108 H
Carbon Dioxide 17 L
BUN 19
Creatinine 1.1
Glucose 120 H
Calcium 8.4
Vital Signs:
Vital Signs
Temp Pulse Resp BP Pulse Ox
98.4 F 86 16 127/79 95
01/02/24 15:11 01/02/24 15:11 01/02/24 15:11 01/02/24 15:11 01/02/24 15:11
I&O
01/01/24 01/02/24 01/03/24
06:59 06:59 06:59
Intake Total 630 / 730 2580 / 2580
Output Total 175 / 175 300 / 300
Balance 455 / 555 2280 / 2280
Physical Exam
-
General: Well Developed and No Apparent Distress
HEENT: Normocephalic, Atraumatic and Moist Mucous Membranes
Respiratory: Clear to Auscultation
Cardiac: Regular Rhythm and S1/S2; Negative Murmur, Rub or Gallop
GI: Soft, Nontender, Nondistended and Normal Bowel Sounds; Negative Organomegaly
Rectal: Deferred by Provider
Musculoskeletal: No Clubbing, No Cyanosis and No Edema
Skin: Negative Rash
Neuro: Nonfocal/Grossly Intact
[2024-01-02 17:05] LABS: Glucose - Point of Care 160 mg/dl (70-99)
[2024-01-02] MEDS: LOVENOX 40 MG SC (18:05)
[2024-01-02] MEDS: SINGULAIR 10 MG PO (20:34)
[2024-01-02] MEDS: CRESTOR 20 MG PO (20:34)
[2024-01-02 21:00] LABS: Glucose - Point of Care 138 mg/dl (70-99)
[2024-01-03 07:38] LABS: Glucose - Point of Care 134 mg/dl (70-99)
[2024-01-03 07:47] VITALS: BP 138/83
[2024-01-03] MEDS: ZYLOPRIM 100 MG PO (08:24)
[2024-01-03] MEDS: FLOMAX 0.4 MG PO (08:25)
[2024-01-03] MEDS: PROTONIX 40 MG PO (08:25)
[2024-01-03] MEDS: NORVASC 2.5 MG PO (08:26)
[2024-01-03] MEDS: LOW STRENGTH ASPIRIN 81 MG PO (08:26)
[2024-01-03] MEDS: ENTRESTO 49 MG/51 MG 1 TAB PO (08:26)
[2024-01-03] MEDS: COREG 25 MG PO (08:26)
[2024-01-03 08:27] LABS: % Basophils 0.6 % (0-2); % Immature Granulocytes 0.6 % (0-0.5); % Lymphocytes 16.4 % (20.5-51.1); % Monocytes 11.4 % (1.7-9.3); Absolute Eosinophils 0.1 10^3/uL (0-0.7); Absolute Lymphocytes 1.1 10^3/uL (1.2-3.4); Absolute Monocytes 0.8 10^3/uL (0.1-0.6); Absolute Neutrophils 4.8 10^3/uL (1.4-6.5); Hematocrit 39.5 % (39.0-52.0); Hemoglobin 13.6 g/dL (13.0-18.0); Mean Corp Hgb Conc. 34.4 g/dL (33.0-37.0); Mean Corpuscular Hgb 33.3 pg (27.0-31.0); Mean Corpuscular Volume 96.8 fL (80.0-94.0); Mean Platelet Volume 9.8 fL (7.4-10.4); Nucleated Red Blood Cells % 0 % (-); Platelet Count 202 10^3/uL (130-400); Red Blood Cell Count 4.08 10^6/uL (4.70-6.10); Red Cell Dist. Width 13.9 % (11.5-14.5)
[2024-01-03] MEDS: ANCEF 10 IV ×2 (08:30→15:16)
[2024-01-03 08:55] LABS: Blood Urea Nitrogen 15 mg/dl (9-20); Calcium 8.3 mg/dl (8.4-10.2); Carbon Dioxide 20 mmol/L (22-30); Chloride 108 mmol/L (98-107); Estimated Creatinine Clearance 61 ml/min; Glucose 162 mg/dl (70-99); Potassium 4.3 mmol/L (3.5-5.1); Sodium 140 mmol/L (135-145); eGFR > 60.00
[2024-01-03] MEDS: NSS 1000 IV (09:25)
--- NOTE | 2024-01-03 11:55 | W.PN.HOSP.TC ---
Addendum entered and electronically signed by Khalif De Santiago MD 01/03/24 15:38:
[id number]
Original Note:
Today's Communication/Plan
-
Transitioning to cephalexin 500 mg 4 times daily for 4 weeks, consider continuation for 2 additional weeks as per urology; UA appears to be improving
Continue Flomax.
F/u urology outpatient
repeat PSA outpatient
Assessment / Plan
Assessment / Plan
Impression:
Clinical sepsis
UTI/prostatitis
OCTAVIO, mild
Metabolic acidosis
Other conditions:
Essential hypertension
Type 2 diabetes.
Recent COVID with persistent cough.
Doubt
Plan:
CT abdomen/pel
1. Moderate diffuse thickening of the urinary bladder wall. Severely enlarged prostate gland. Mild perivesical and periprostatic inflammation suggesting ACUTE CYSTITIS and possibly acute prostatitis superimposed upon chronic urinary bladder outlet
obstruction.
2. Mild distention of the distal left ureter with mild periureteral inflammation suggesting ascending urinary tract infection.
3. No CT evidence for hydronephrosis in either kidney.
4. Moderate chronic bilateral renal disease.
#Sepsis
#prostatitis
#cystitis
PSA 6.21
Urine culture with E. coli resistant to quinolones
Remains febrile with chills
Hemodynamically stable.
Given E. coli sensitivities transition of Levaquin to cefazolin. Transitioning to cephalexin 500 mg 4 times daily for 4 weeks, consider continuation for 2 additional weeks as per urology; UA appears to be improving
Continue Flomax.
Monitor for retention
F/u urology
-repeat PSA outpatient
OCTAVIO, resolved
Metabolic acidosis.
Normal lactate level.
Continue IV fluids.
Creatinine improving 1.3�1.1.
Follow BMP outpatient
Essential hypertension.
Patient reports no history of CHF.
Negative history of CAD.
Negative history of arrhythmia.
Continue preadmission regimen including Coreg, Entresto, statin, aspirin
Type 2 diabetes
Hold oral hypoglycemics
Continue insulin basal bolus.
Continue carbohydrate controlled diet
More than 30 minutes spent in discharge including
Final examination of the patient
Summarizing hospital stay
Instructions for continuing care to all relevant caregivers
Preparation of discharge records, prescriptions, and referral forms
Total time spent (35 in minutes):
Anticipated Discharge: Today
Subjective/Interval History
-
Date of Service: January 03, 2024
No acute events, afebrile >24 hours
Objective Data
-
Labs:
Laboratory Results
01/03/24
07:53
WBC 7.0
Hgb 13.6
Hct 39.5
Plt Count 202
Sodium 140
Potassium 4.3
Chloride 108 H
Carbon Dioxide 20 L
BUN 15
Creatinine 1.0
Glucose 162 H
Calcium 8.3 L
Vital Signs:
Vital Signs
Temp Pulse Resp BP Pulse Ox
98.4 F 88 16 138/83 93
01/03/24 07:47 01/03/24 07:47 01/03/24 07:47 01/03/24 07:47 01/03/24 07:47
I&O
01/02/24 01/03/24 01/04/24
06:59 06:59 06:59
Intake Total 2580 / 2580 2940 / 2940
Output Total 300 / 300
Balance 2280 / 2280 2940 / 2940
Review of Systems
-
History Source: Patient
All other systems: Not reviewed unless documented
Physical Exam
-
General: Well Developed and No Apparent Distress
HEENT: Normocephalic, Atraumatic and Moist Mucous Membranes
Respiratory: Clear to Auscultation
Cardiac: Regular Rhythm and S1/S2; Negative Murmur, Rub or Gallop
GI: Soft, Nontender, Nondistended and Normal Bowel Sounds; Negative Organomegaly
Rectal: Deferred by Provider
Musculoskeletal: No Clubbing, No Cyanosis and No Edema
Skin: Negative Rash
Neuro: Nonfocal/Grossly Intact
Data Reviewed
-
CT Scan: Image personally visualized and interpreted and Report Reviewed by me
Labs: Labs Reviewed by me
[2024-01-03 12:20] LABS: Glucose - Point of Care 119 mg/dl (70-99)
[2024-01-03 12:20] LABS: Urine Albumin Trace (Neg - Trace); Urine Bilirubin Negative (Negative); Urine Character Clear (Clear); Urine Color Yellow; Urine Glucose 1+ (Negative); Urine Ketone Negative (Negative); Urine Leukocyte Negative (Negative); Urine Nitrite Negative (Negative); Urine Occult Blood 3+ (Negative); Urine Specific Gravity 1.015 (<1.030); Urine Urobilinogen Negative (Neg - 1+)
[2024-01-03 13:35] LABS: Urine Mucus Few
[2024-01-03 13:36] LABS: Urine Bacteria Few (Negative)
[2024-01-03 15:00] VITALS: BP 117/84
--- NOTE | 2024-01-03 15:35 | W.DS.TRANS ---
DC Summary - [employer]
-
Discharge Instructions:
Discharge Diagnosis/Procedures Sepsis/prostatitis�cystitis
Diet Low Cholesterol,Low Fat,Diabetic, Carb
Controlled
Activity As tolerated
Blood Work cbc, bmp in 5 days with pcp; repeat psa
outpatient with urologist. it was 6.21 here with
prostatitis
Instructions:
Stand-Alone Forms:
Changes to Home Medications: Yes
Discharge Medications:
DC Medications w/original date entered in [facility]
allopurinol 100 mg tablet 100 mg PO BID Gout 12/31/23
amlodipine 2.5 mg tablet 2.5 mg PO DAILY Blood Pressure 12/31/23
aspirin 81 mg chewable tablet 81 mg PO DAILY Blood Clot Prevention/Tx 12/31/23
azelastine 137 mcg (0.1 %) nasal spray 1 spray intranasal BIDPRN PRN congestion 12/31/23
carvedilol 25 mg tablet 25 mg PO BID Blood Pressure 12/31/23
cholecalciferol (vit D3) 1,000 unit-vitamin K2 (MK4) 100 mcg tablet 1 tab PO DAILY Supplement 12/31/23
fluticasone propionate 50 mcg/actuation nasal spray,suspension 1 spray intranasal BIDPRN PRN congestion 12/31/23
lansoprazole 30 mg capsule,delayed release 30 mg PO DAILY Gastrointestinal Issue 12/31/23
metformin 500 mg tablet 500 mg PO BID Diabetes 12/31/23
montelukast 10 mg tablet 10 mg PO HS Allergies 12/31/23
rosuvastatin 20 mg tablet 20 mg PO HS High Cholesterol 12/31/23
sacubitril 49 mg-valsartan 51 mg tablet (Entresto) 1 tab PO BID Heart Failure 12/31/23
sitagliptin phosphate 100 mg tablet (Januvia) 100 mg PO DAILY Diabetes 12/31/23
zinc sulfate 50 mg zinc (220 mg) tablet 50 mg PO DAILY Supplement 12/31/23
cephalexin 500 mg capsule 500 mg PO QID 4 weeks #112 caps 01/03/24
tamsulosin 0.4 mg capsule 0.4 mg PO DAILY 30 days #30 caps 01/03/24
Home Medication Changes
cephalexin 500 mg capsule 500 mg PO QID 4 weeks #112 caps 01/03/24
tamsulosin 0.4 mg capsule 0.4 mg PO DAILY 30 days #30 caps 01/03/24
Pending Results: No
--- NOTE | 2024-01-03 15:47 | CM ---
MD entered order for dc.
Spoke with pt he said he was ready for dc.\\
He said he had a ride home.
IMM reviewed with him he agrees with dc.
Offered VN he declined need.
PLAN Home no needs
[2024-01-03] MEDS: ROBITUSSIN DM 10 ML PO (15:57)
== END 2024-01-03 17:08 | disposition home or self-care (01) | DRG 872 ==
LOC: 3 WEST ACU 22:07
PROVIDERS: Clinical Nurse Specialist Family Health; Internal Medicine; Student in an Organized Health Care Education/Training Program; ADMITTING PHYSICIAN Hospitalist; ATTENDING PHYSICIAN Internal Medicine; EMERGENCY PHYSICIAN Emergency Medicine; FAMILY PHYSICIAN Family Medicine
DX: A41.51 Sepsis due to Escherichia coli [E. coli] (principal); N41.0 Acute prostatitis; N17.9 Acute kidney failure, unspecified; E87.20 Acidosis, unspecified; Z16.23 Resistance to quinolones and fluoroquinolones; N41.3 Prostatocystitis; E78.00 Pure hypercholesterolemia, unspecified; E11.9 Type 2 diabetes mellitus without complications; I11.0 Hypertensive heart disease with heart failure; I50.9 Heart failure, unspecified; J45.909 Unspecified asthma, uncomplicated; Z11.52 Encounter for screening for COVID-19; Z87.891 Personal history of nicotine dependence; Z79.84 Long term (current) use of oral hypoglycemic drugs; Z79.82 Long term (current) use of aspirin; Z79.899 Other long term (current) drug therapy; Z86.16 Personal history of COVID-19; Z85.820 Personal history of malignant melanoma of skin; Z85.72 Personal history of non-Hodgkin lymphomas
CPT/HCPCS: 71046; 74176; 80048; 80053; 81003; 81015; 82962; 83036; 83605; 85025; 85027; 87040; 87077; 87086; 87186; 87502; 87811; 93005; 96361; 96374; 99285; G0103